=== PATIENT | female | born 2000 | race Caucasian/White ===

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

== ENCOUNTER 2025-03-28 12:58 | Emergency (ER) | payer BC, OTHER ==
[~2025-03-28] VITALS: Ht 152.4 cm; Wt 47.7 kg
[~2025-03-28 12:58] MED LIST changes: +MONT-40 PO; -MONT10TA24 PO; -dextrose 5%-lactated ringers 1,000 ML IV SCH; -famotidine 10mg tablet PO ONE
[2025-03-28 13:00] VITALS: BP 136/90; PULSE 85; RESP 16; TEMP 98.7; O2SAT 99
--- NOTE | 2025-03-28 14:43 | RADIOLOGY REPORT ---
EXAM: DI NASAL BONES, 3VW MIN HISTORY: Trauma COMPARISON: None TECHNIQUE: AP and both lateral views of the nasal bones were performed. FINDINGS: No fracture is identified about the nose or visualized portions of the facial bones. The nasal septum is midline. The paranasal sinuses and mastoid air cells are clear. IMPRESSION: No evidence of nasal bone fracture.
[2025-03-28] MEDS ORDERED: FLUT16SP2 BOTHNARES (14:50)
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
== END 2025-03-28 15:24 | disposition home or self-care (01) ==
LOC: ER 12:59
DX: S00.33XA Contusion of nose, initial encounter (principal); Z79.899 Other long term (current) drug therapy; W22.8XXA Striking against or struck by other objects, initial encounter; Y93.89 Activity, other specified; Y92.89 Other specified places as the place of occurrence of the external cause; Y99.8 Other external cause status
CPT/HCPCS: 70160; 99283